=== PATIENT | female | born 1950 | race Caucasian/White ===

== ENCOUNTER 2019-10-24 03:00 | Emergency (ER) | payer MEDICARE, BC ==
[~2019-10-24] VITALS: Ht 165.1 cm; Wt 98.2 kg
[2019-10-24] MEDS ORDERED: ASPIRIN 81 MG CHEW TABLET PO ONE (03:45)
[2019-10-24] MEDS ORDERED: NITROGLYCERIN 0.4 MG SUBL TABLET SL PRN (03:45)
--- NOTE | 2019-10-24 03:59 | REP ---
Clinical: Chest pain . Comparison: None . Technique: PA and lateral. Findings: The mediastinum and cardiac silhouette are normal. The lung navarro are clear and without acute consolidation, effusion, or pneumothorax. The skeletal structures are intact and normal. Impression: 1. No acute cardiopulmonary process. Electronically Signed by Yuriy Sargent MD 10/24/2019 03:51 A
[2019-10-24 04:01] VITALS: BP 157/87
[2019-10-24 04:13] LABS: BASO % 0.5 % (0.0-1.0); EOS # 0.1 10^3/uL (0.0-0.5); EOS % 2.4 % (0.0-3.0); HEMATOCRIT 41.6 % (36.0-47.0); HEMOGLOBIN 12.9 g/dl (12.0-15.5); LYMPH # 1.6 10^3/uL (1.5-5.0); LYMPH % 27.7 % (24.0-44.0); MEAN CORPUSCULAR HEMOGLOBIN 30.3 pg (27.0-33.0); MEAN CORPUSCULAR VOLUME 97.7 fl (80.0-96.0); MONO # 0.4 10^3/uL (0.0-0.8); MONO % 6.8 % (0.0-5.0); NEUTROPHILS # 3.7 10^3/uL (1.5-8.5); NEUTROPHILS % 62.4 % (36.0-66.0); PLATELET COUNT, AUTOMATED 138 10^3/uL (150-450); RED BLOOD COUNT 4.26 10^6/uL (4.00-5.40); WHITE BLOOD COUNT 5.9 10^3/uL (4.0-10.0)
[2019-10-24 04:24] LABS: INR 1.09; PROTHROMBIN TIME 13.8 SECONDS (11.8-14.0)
[2019-10-24 04:25] LABS: PARTIAL THROMBOPLASTIN TIME 29.4 SECONDS (25.0-38.4)
[2019-10-24 04:44] LABS: ALBUMIN 3.7 GM/DL (3.2-5.2); ALT/SGPT 17 U/L (12-78); BILIRUBIN,DIRECT 0.2 MG/DL (0.0-0.2); BILIRUBIN,TOTAL 0.6 MG/DL (0.2-1.0); BLOOD UREA NITROGEN 12 MG/DL (7-18); CALCIUM LEVEL 9.7 MG/DL (8.8-10.2); CARBON DIOXIDE LEVEL 26 MEQ/L (21-32); CHLORIDE LEVEL 111 MEQ/L (98-107); CK-MB VALUE MASS 1.4 NG/ML (<3.6); CPK CREATINE PHOSPHOKINASE 82 U/L (26-192); CREATININE FOR GFR 0.86 MG/DL (0.55-1.30); GLOMERULAR FILTRATION RATE > 60.0 (>45); GLUCOSE, FASTING 114 MG/DL (70-100); LIPASE 70 U/L (73-393); MB/CK RELATIVE INDEX 1.71 (< OR =4); SODIUM LEVEL 143 MEQ/L (136-145); TOTAL PROTEIN 6.5 GM/DL (6.4-8.2); TROPONIN I < 0.02 NG/ML (< 0.10)
[2019-10-24 04:47] LABS: INFLUENZA A AMPLIFICATION NEGATIVE (NEGATIVE); INFLUENZA B AMPLIFICATION NEGATIVE (NEGATIVE)
[2019-10-24] MEDS ORDERED: ISOVUE-370 76% 100ML VIAL (Q9967) As Ordered ONE (05:10)
--- NOTE | 2019-10-24 05:53 | REPVR ---
PROCEDURE INFORMATION: Exam: CT Angiography Chest With Contrast Exam date and time: 10/24/2019 4:52 AM Age: 69 years old Clinical indication: Chest pain; Type not specified; Additional info: Pleuritic chest pain recent travel TECHNIQUE: Imaging protocol: Computed tomographic angiography of the chest with intravenous contrast. 3D rendering: MIP and/or 3D reconstructed images were created by the technologist. Radiation optimization: All CT scans at this facility use at least one of these dose optimization techniques: automated exposure control; mA and/or kV adjustment per patient size (includes targeted exams where dose is matched to clinical indication); or iterative reconstruction. Contrast material: ISO; Contrast volume: 75 ml; Contrast route: AC; COMPARISON: CR Chest, 2 view PA, Lat 10/24/2019 3:21 AM FINDINGS: Pulmonary arteries: The pulmonary arteries are not enlarged. No filling defects are seen to indicate an acute pulmonary embolism. Assessment of the smaller branches is limited in some locations due to motion artifact. Aorta: There is no thoracic aortic aneurysm or evidence of dissection. Lungs: Motion artifact limits the assessment of the fine detail of the lungs. There is a small amount of patchy ground-glass opacity and minimal consolidation in both lower lobes, nonspecific but likely subsegmental atelectasis. There is a smooth 9 x 7 mm nodule in the right upper lobe (image 59 of series 401). Pleural space: No pleural effusions or pneumothorax identified. Heart: The heart is normal in size. Mediastinum: A small hiatal hernia is present. Gallbladder and bile ducts: There has been a cholecystectomy. Spleen: There is a calcification in the spleen, consistent with remote granulomatous organism exposure. Lymph nodes: No lymphadenopathy is seen. Bones/joints: Unremarkable. No acute fracture. Soft tissues: The soft tissues appear unremarkable. IMPRESSION: 1. No evidence of acute pulmonary embolism. Assessment of some of the smaller branches is limited by motion artifact. 2. Bilateral lung base mild ground-glass opacity and small amount of dependent consolidation, nonspecific but probably related to subsegmental atelectasis. 3. 9 x 7 mm nodule in the right upper lobe. For patients at low risk (minimal or absent history of smoking and of other known risk factors), recommend CT at 6-12 months, then consider CT at 18-24 months. For patients at high risk (history of smoking or of other known risk factors), recommend CT at 6-12 months, then CT at 18-24 months. (Bhumi et al., Fleischner Society, 2017) 4. Hiatal hernia. Electronically signed by: Melony Obrien On 10/24/2019 05:53:24 AM
[2019-10-24] MEDS ORDERED: DULO1CAP6 PO (08:24)
[2019-10-24] MEDS ORDERED: TOPI100T9 PO (08:24)
[2019-10-24] MEDS ORDERED: BUPR300T92 PO (08:24)
[2019-10-24] MEDS ORDERED: LOSA25TA14 PO (08:24)
[2019-10-24] MEDS ORDERED: LORA1TAB4 PO (08:24)
[2019-10-24] MEDS ORDERED: OMEP-218 PO (08:24)
[2019-10-24] MEDS ORDERED: ECOT81TA5 PO (08:24)
[2019-10-24] MEDS ORDERED: GABA600T4 PO (08:24)
[2019-10-24] MEDS ORDERED: BUPR150T3 PO (08:24)
[2019-10-24] MEDS ORDERED: MULT1TAB42 PO (08:24)
[2019-10-24] MEDS ORDERED: TRAZ-189 PO (08:24)
[2019-10-24] MEDS ORDERED: SULF500T2 PO (08:24)
[2019-10-24] MEDS ORDERED: OMEGCAP4 PO (08:24)
[2019-10-24] MEDS ORDERED: PRED5TA PO (08:24)
[2019-10-24] MEDS ORDERED: ATOR40TA75 PO (08:24)
[2019-10-24] MEDS ORDERED: HYDR200T3 PO (08:24)
--- NOTE | 2019-10-24 08:54 | ECGEPIP ---
[facility] - ED Test Date: 2019-10-24 Pat Name: KATHLEEN WRIGHT Department: Room: - Gender: Female Coding Assistant: sb : 1950 Requested By: REGINA Mejía Order Number: [id number] Reading MD: Fany العلي Measurements Intervals [place] Rate: 82 P: 54 HI: 145 QRS: 15 QRSD: 88 T: 18 QT: 320 QTc: 376 Interpretive Statements SINUS RHYTHM NONSPECIFIC T-WAVE ABNORMALITY PRWP baseline artifact may affect interpretation NO PRIOR Electronically Signed on 10-24-2019 8:54:11 EST by Fany العلي
[2019-10-24 09:43] LABS: CK-MB VALUE MASS 1.6 NG/ML (<3.6); MB/CK RELATIVE INDEX 2.35 (< OR =4); TROPONIN I 0.02 NG/ML (< 0.10)
[2019-10-24] MEDS ORDERED: DOXY100C37 PO (10:00)
[2019-10-24 10:17] VITALS: BP 138/64
--- NOTE | 2019-10-24 21:12 | ECGEPIP ---
[facility] - ED Test Date: 2019-10-24 Pat Name: KATHLEEN WRIGHT Department: Room: - Gender: Female Jtac: : 1950 Requested By: REGINA Mejía Order Number: [id number] Reading MD: Fany العلي Measurements Intervals [place] Rate: 62 P: 60 CO: 149 QRS: 38 QRSD: 91 T: 41 QT: 439 QTc: 447 Interpretive Statements SINUS RHYTHM NSTTW abnormalities DECREASED RATE 10/24/19 Electronically Signed on 10-24-2019 21:11:37 EST by Fany العلي
== END 2019-10-24 10:18 | disposition home or self-care (01) ==
LOC: M ED 03:00
DX: R07.9 Chest pain, unspecified (principal); R91.1 Solitary pulmonary nodule; K44.9 Diaphragmatic hernia without obstruction or gangrene; J20.9 Acute bronchitis, unspecified; E11.9 Type 2 diabetes mellitus without complications; I10 Essential (primary) hypertension; E78.5 Hyperlipidemia, unspecified; Z88.0 Allergy status to penicillin; Z79.52 Long term (current) use of systemic steroids; Z79.82 Long term (current) use of aspirin; Z79.83 Long term (current) use of bisphosphonates; Z79.899 Other long term (current) drug therapy
CPT/HCPCS: 36415; 71046; 71275; 80048; 80076; 82550; 82553; 83690; 84439; 84443; 84484; 85025; 85610; 85730; 87502; 93005; 93041; 94760; 99285; Q9967